=== PATIENT | male | born 1965 | race African-American/Black ===

== ENCOUNTER 2021-01-25 18:02 | Emergency (ER) | payer BC ==
[~2021-01-25] VITALS: Ht 195.6 cm; Wt 90.3 kg
[2021-01-25 18:31] LABS: ABSOLUTE NEUTROPHILS 3.1 thou/uL (1.4-8.2); BASOPHILS 0.6 % (0.0-2.0); EOSINOPHILS 2.6 % (0.0-3.0); HEMATOCRIT 41.4 % (42.0-52.0); HEMOGLOBIN 13.5 gm/dL (14.0-18.0); LYMPHOCYTES 43.6 % (24.0-44.0); MCH 29.4 pg (26.0-34.0); MCHC 32.7 g/dL (28.0-37.0); MCV 90.1 fL (80.0-100.0); MONOCYTES 5.1 % (1.0-8.0); PLATELET COUNT 283 thou/uL (150-400); POLYS 48.1 % (36.0-66.0); RDW 13.1 % (10.5-14.5); WBC 6.5 thou/uL (4.0-11.0)
[2021-01-25 18:40] LABS: CALCIUM 8.6 mg/dL (8.5-10.1); CREATININE 1.2 mg/dL (0.7-1.3); POTASSIUM 3.8 mmol/L (3.5-5.1)
[2021-01-25 18:47] LABS: ALBUMIN 3.7 g/dL (3.4-5.0); TOTAL BILIRUBIN 0.6 mg/dL (0.2-1.0); TOTAL PROTEIN 7.5 g/dL (6.4-8.2)
[2021-01-25 21:03] VITALS: BP 132/79
--- NOTE | 2021-01-26 07:03 | EKG ---
Formerly [facility] [place] [address] ELECTROCARDIOGRAM REPORT Name: BUBBA ESPARZA Room #: DEP DARRELL Bynum#: [id number] Admission: 01/25/21 Attend Phys: Discharge: 01/25/21 Date of : 69 Report #: [id number] [facility]ly [facility] ED Test Date: 2021-01-25 Test Time: 19:10:12 Pat Name: BUBBA ESPARZA Department: Room: Gender: M Hris Analyst: BURTON : 1965 Requested By: Teofilo Reina Order Number: [id number] MD: Vick Mendoza Measurements Intervals [place] Rate: 64 P: 75 MT: 139 QRS: -43 QRSD: 111 T: 25 QT: 414 QTc: 427 Interpretive Statements Sinus rhythm Probable left atrial enlargement RSR' in V1 or V2, right VCD or RVH Left ventricular hypertrophy J Point elevation V1-3 No previous ECG available for comparison Electronically Signed On 01-26-2021 7:02:58 CDT by Vick Mendoza [email or web address] <ELECTRONICALLY SIGNED> By: Vick Mendoza MD, [facility] 01/26/21 07 09 09 Vick Mendoza MD, FACC /EPI
== END 2021-01-25 21:08 | disposition home or self-care (01) ==
LOC: ER 18:02
PROVIDERS: Nurse Practitioner
DX: M79.10 Myalgia, unspecified site (principal); F12.10 Cannabis abuse, uncomplicated; R79.9 Abnormal finding of blood chemistry, unspecified